=== PATIENT | female | born 1955 | race African-American/Black ===

== ENCOUNTER 2016-09-14 16:38 | Emergency (ER) | payer OTHER ==
[~2016-09-14] VITALS: Ht 162.6 cm; Wt 77.1 kg
[~2016-09-14 16:38] MED LIST: ALBUTEROL SULF8.5 GM INH; ASPIR 8181 MG ORAL; CIPROFLOXACIN500 M2 ORAL; DILANTIN100 MG ORAL; ENALAPRIL-HCTZ1 EAC1 ORAL; GUAIFENESIN DM118 M1 ORAL; IBUPROFEN600 MG ORAL; LEVAQUIN750 MG ORAL; LISINOPRIL2.5 MG ORAL; NITROFURANTOIN100 M2 ORAL; NORCO 5-325 TA1 EAC1 ORAL; PROAIR HFA8.5 GM INH; PROMETHAZINE-D118 ML ORAL; VALIUM5 MG PO; ZYRTEC10 MG ORAL
[2016-09-14] MEDS ORDERED: LISINOPRIL2.5 MG ORAL (17:29)
--- NOTE | 2016-09-14 17:42 | Emergency Room Report ---
History of Present Illness General Chief Complaint: Eye Problems Source: Patient Present Illness HPI 61-year-old female presents to emergency Department complaining of discharge out of the right eye with itching and sticky sensation x1 day. Patient states she woke up and her eye was stuck closed. Patient reports previous upper respiratory illness denies eye pain or possible foreign body sensation.. she also reports increase in erythema of the eye. Denies changes in vision. Denies photophobia, halos around lights, floaters or loss of vision. Denies CP , Palpitations, LOC, AMS, dizziness, Changes in Vision, Sensation, paresthesias , or a sudden severe headache. Allergies: Coded Allergies: CODEINE (Unverified Allergy, Intermediate, 12/16/14) NAUSEA Patient History Past Medical History: see triage record Past Surgical History: none Pertinent Family History: none Last Menstrual Period: na Now: No Reviewed Nursing Documentation: PMH: Agreed, PSxH: Agreed Nursing Documentation-PMH Past Medical History: No History, Except For Hx Cardiac Problems: No Hx Hypertension: Yes Hx Pacemaker: No Hx Asthma: No Hx COPD: No Hx Diabetes: No Hx Cancer: No Hx Gastrointestinal Problems: No Hx Dialysis: No Hx Cerebrovascular Accident: No Hx Seizures: Yes Review of Systems All Other Systems: negative except mentioned in HPI Physical Exam Vital Signs Date Time Temp Pulse Resp B/P Pulse Ox O2 Delivery O2 Flow Rate FiO2 09/14/16 17:24 97.9 78 18 111/79 99 Room Air Sp02 EP Interpretation: reviewed, normal General Appearance: no apparent distress, alert, GCS 15, non-toxic Head: normocephalic, atraumatic Eyes: right eye other - scant amount of yellow d/c noted in the right eye with mild erythema of the sclera, no evidence of infestation, mild crusting noted , left eye is WNL, bilateral eye PERRL, bilateral eye normal inspection ENT: hearing grossly normal, normal pharynx, no angioedema, normal voice Neck: full range of motion, supple/symm/no masses Respiratory: chest non-tender, lungs clear, normal breath sounds, speaking full sentences Cardiovascular #1: regular rate, rhythm, no edema Cardiovascular #2: 2+ carotid (R), 2+ carotid (L), 2+ radial (R), 2+ radial (L) , 2+ dorsalis pedis (R), 2+ dorsalis pedis (L) Gastrointestinal: normal bowel sounds, non tender, soft, no guarding, no rebound Rectal: deferred Genitourinary: normal inspection, no CVA tenderness Musculoskeletal: back normal, gait/station normal, normal range of motion, non- tender, no calf tenderness Neurologic: alert, oriented x3, responsive, motor strength/tone normal, sensory intact, speech normal Psychiatric: judgement/insight normal, memory normal, mood/affect normal, no suicidal/homicidal ideation Reflexes: 4+ bicep (R), 4+ bicep (L), 4+ tricep (R), 4+ tricep (L), 4+ knee (R) , 4+ knee (L) Skin: normal color, no rash, warm/dry, well hydrated Lymphatic: no adenopathy Medical Decision Making PA Attestation Dr. Winston is my supervising Physician whom patient management has been discussed with. Diagnostic Impression: Primary Impression: Bacterial conjunctivitis of right eye ER Course Pt. presents to the ED c/o : right eye redness, discharge, and increased lacrimation x 1 day. -with recent URI symptoms. , denies fb sensation. Ddx considered but are not limited to: corneal abrasion, acute glaucoma, globe rupture, FB, Corneal Ulcer, conjunctivitis. Iridis, orbital cellulitis,keratitis , sinusitis Vital signs: are WNL, pt. is afebrile H&PE are most consistent with: bacterial conjunctivitis. ORDERS: none at this time. ED INTERVENTIONS: none at this time. DISCHARGE: At this time pt. is stable for d/c to home. Will provide printed patient care instructions, and any necessary prescriptions. Care plan and follow up instructions have been discussed with the patient prior to discharge. Last Vital Signs Date Time Temp Pulse Resp B/P Pulse Ox O2 Delivery O2 Flow Rate FiO2 09/14/16 17:24 97.9 78 18 111/79 99 Room Air Disposition: HOME, SELF-CARE Condition: Stable Scripts Ofloxacin (OCUFLOX) 5 Ml Drops 3 DROP OP BID for 5 Days, #5 ML Prov: Belen Hays 09/14/16 Patient Instructions: Bacterial Conjunctivitis, [id number] Additional Instructions: Take medications as directed. Follow up with PCP in 3-5 days Return sooner to ED if new symptoms occur, or current symptoms become worse. Belen Hays Sep 14, 2016 17:42
[2016-09-14] MEDS ORDERED: OCUFLOX5 ML OP (17:50)
[2016-09-14 18:34] VITALS: BP 124/73
== END 2016-09-14 18:34 | disposition home or self-care (01) ==
LOC: EMR 18:05
DX: H10.89 Other conjunctivitis (principal); I10 Essential (primary) hypertension; Z88.6 Allergy status to analgesic agent
CPT/HCPCS: 99283

== ENCOUNTER 2017-01-06 23:27 | Emergency (ER) | payer OTHER ==
[~2017-01-06] VITALS: Ht 162.6 cm; Wt 77.1 kg
[~2017-01-06 23:27] MED LIST changes: +OCUFLOX5 ML OP
[2017-01-07] VITALS: BP 137/52
--- NOTE | 2017-01-07 00:03 | Emergency Room Report ---
History of Present Illness General Chief Complaint: Palpitations Source: Patient Present Illness HPI Patient presents with complaints of palpitation sensation for the past 3 days Patient reports that she has had a lot of significant stress including her own birthday libertarian and now her sons prom Denies any chest pain with this denies any headache or visual changes denies any back or flank pain patient had some discomfort going into the left shoulder with a palpitation sensation However is pain-free at this time Denies any weakness Allergies: Coded Allergies: CODEINE (Unverified Allergy, Intermediate, 12/16/14) NAUSEA Patient History Past Medical History: see triage record Pertinent Family History: none Last Menstrual Period: NONE Now: No Reviewed Nursing Documentation: PMH: Agreed, PSxH: Agreed Nursing Documentation-PMH Past Medical History: No Stated History Hx Cardiac Problems: No Hx Hypertension: Yes Hx Pacemaker: No Hx Asthma: No Hx COPD: No Hx Diabetes: No Hx Cancer: No Hx Gastrointestinal Problems: No Hx Dialysis: No Hx Cerebrovascular Accident: No Hx Seizures: Yes Review of Systems All Other Systems: negative except mentioned in HPI Physical Exam Vital Signs Date Time Temp Pulse Resp B/P Pulse Ox O2 Delivery O2 Flow Rate FiO2 01/06/17 23:30 97.9 74 20 158/62 98 Room Air Sp02 EP Interpretation: reviewed, normal General Appearance: well appearing, no apparent distress Head: normocephalic, atraumatic Eyes: bilateral eye EOMI, bilateral eye PERRL ENT: hearing grossly normal, normal pharynx, TMs + canals normal, uvula midline Neck: full range of motion, supple, no meningismus, no bony tend Respiratory: lungs clear, normal breath sounds, no rhonchi, no respiratory distress, no retraction, no accessory muscle use Cardiovascular #1: normal peripheral pulses, regular rate, rhythm, no edema, no gallop, no JVD, no murmur Gastrointestinal: normal bowel sounds, non tender, soft, no mass, no organomegaly, non-distended, no guarding, no hernia, no pulsatile mass, no rebound Genitourinary: no CVA tenderness Musculoskeletal: normal inspection Neurologic: oriented x3, responsive, financial counselor III-XII nml as tested, motor strength/ tone normal, sensory intact Psychiatric: mood/affect normal Skin: normal color, no rash, warm/dry, palpation normal Lymphatic: normal inspection, no adenopathy Medical Decision Making Diagnostic Impression: Primary Impression: Palpitations ER Course Patient is a fairly complex patient with multiple differential to consideration including but not limited to cardiac cardiopulmonary and vascular emergencies Patient's baseline blood work are normal EKG looked appropriate Patient feels symptomatically improved Potassium was minimal low and this was replaced orally here And patient discharged for close outpatient followup Labs Test 01/06/17 23:57 White Blood Count 6.6 K/UL (4.8-10.8) Red Blood Count 3.85 M/UL (4.20-5.40) Hemoglobin 10.9 G/DL (12.0-16.0) Hematocrit 33.7 % (37.0-47.0) Mean Corpuscular Volume 88 FL (80-99) Mean Corpuscular Hemoglobin 28.3 PG (27.0-31.0) Mean Corpuscular Hemoglobin Concent 32.3 G/DL (32.0-36.0) Red Cell Distribution Width 15.0 % (11.6-14.8) Platelet Count 290 K/UL (150-450) Mean Platelet Volume 7.3 FL (6.5-10.1) Neutrophils (%) (Auto) 54.5 % (45.0-75.0) Lymphocytes (%) (Auto) 36.4 % (20.0-45.0) Monocytes (%) (Auto) 8.7 % (1.0-10.0) Eosinophils (%) (Auto) 0.1 % (0.0-3.0) Basophils (%) (Auto) 0.4 % (0.0-2.0) Sodium Level 141 mEQ/L (135-145) Potassium Level 3.1 mEQ/L (3.4-4.9) Chloride Level 98 mEQ/L (98-107) Carbon Dioxide Level 30 mEQ/L (20-30) Anion Gap 13 (5-15) Blood Urea Nitrogen 16 mg/dL (7-23) Creatinine 0.9 mg/dL (0.5-0.9) Estimat Glomerular Filtration Rate > 60 mL/min (>60) Glucose Level 88 mg/dL (74-106) Calcium Level 9.5 mg/dL (8.6-10.2) Total Bilirubin < 0.2 mg/dL (0.0-1.2) Aspartate Amino Transf (AST/SGOT) 20 U/L (5-40) Alanine Aminotransferase (ALT/SGPT) 17 U/L (3-33) Alkaline Phosphatase 130 U/L (35-104) Total Creatine Kinase 101 U/L (26-140) Creatine Kinase MB < 1.5 ng/mL (< 3.8) Creatine Kinase MB Relative Index 1.4 Troponin I < 0.30 ng/mL (<=0.30) Total Protein 8.3 g/dL (6.6-8.7) Albumin 4.4 g/dL (3.5-5.2) Globulin 3.9 g/dL Albumin/Globulin Ratio 1.1 (1.0-2.7) EKG Diagnostic Results Rate: normal Rhythm: NSR ST Segments: no acute changes Rhythm Strip Diag. Results EP Interpretation: yes Rate: 67 Rhythm: NSR, no PVC's, no ectopy Chest X-Ray Diagnostic Results EP Interpretation: Yes Findings: no consolidation, no effusion, no pneumothorax Number of Views: 1 Last Vital Signs Date Time Temp Pulse Resp B/P Pulse Ox O2 Delivery O2 Flow Rate FiO2 01/07/17 00:00 97.9 73 17 137/52 98 Room Air Status: improved Disposition: HOME, SELF-CARE Condition: Improved Additional Instructions: Patient is provided with the discharge instructions notified to follow up with primary doctor in the next 2-3 days otherwise return to the er with any worsening symptoms. Please note that this report is being documented using [employer] technology. This can lead to erroneous entry secondary to incorrect interpretation by the dictating instrument. TREASURE MOBLEY D.O. January 07, 2017 00:03
[2017-01-07 00:08] LABS: BASOPHILS % (AUTO) 0.4 % (0.0-2.0); EOSINOPHILS % (AUTO) 0.1 % (0.0-3.0); LYMPHOCYTES % (AUTO) 36.4 % (20.0-45.0); MEAN CORPUSCULAR HEMOGLOBIN 28.3 PG (27.0-31.0); MEAN CORPUSCULAR HGB CONC 32.3 G/DL (32.0-36.0); MEAN CORPUSCULAR VOLUME 88 FL (80-99); MEAN PLATELET VOLUME 7.3 FL (6.5-10.1); MONOCYTES % (AUTO) 8.7 % (1.0-10.0); NEUTROPHILS % (AUTO) 54.5 % (45.0-75.0); PLATELET COUNT 290 K/UL (150-450); RED BLOOD COUNT 3.85 M/UL (4.20-5.40); WHITE BLOOD COUNT 6.6 K/UL (4.8-10.8)
[2017-01-07 00:27] LABS: TROPONIN I < 0.30 ng/mL (<=0.30)
[2017-01-07 00:30] LABS: ALANINE AMINOTRANSFERASE 17 U/L (3-33); ALBUMIN/GLOBULIN RATIO 1.1 (1.0-2.7); ANION GAP 13 (5-15); ASPARTATE AMINO TRANSFERASE 20 U/L (5-40); CALCIUM 9.5 mg/dL (8.6-10.2); CARBON DIOXIDE 30 mEQ/L (20-30); CHLORIDE 98 mEQ/L (98-107); CREATININE 0.9 mg/dL (0.5-0.9); GLOMERULAR FILTRATION RATE > 60 mL/min (>60); HEMOLYSIS 2; POTASSIUM 3.1 mEQ/L (3.4-4.9); SODIUM 141 mEQ/L (135-145); TOTAL PROTEIN 8.3 g/dL (6.6-8.7)
[2017-01-07 00:40] LABS: CKMB < 1.5 ng/mL (< 3.8)
[2017-01-07 00:55] VITALS: BP 122/57
[2017-01-07 01:15] VITALS: BP 122/57
--- NOTE | 2017-01-07 09:07 | Diagnostic Imaging Report ---
Indications: Chest pain Technique: Portable upright AP chest Findings: Comparison: 11/02/15 Cardiac silhouette remains normal in size. Mild pulmonary vascular redistribution suggested.. Lungs and pleura remain clear. Mild calcification and elongation of the aortic arch again noted. IMPRESSION: Suggestion of pulmonary venous hypertension. Early heart failure must be considered. Stable chronic changes as described
== END 2017-01-07 01:16 | disposition home or self-care (01) ==
LOC: EMR 23:55
DX: R00.2 Palpitations (principal); Z88.5 Allergy status to narcotic agent; I10 Essential (primary) hypertension; Z86.69 Personal history of other diseases of the nervous system and sense organs
CPT/HCPCS: 36415; 71010; 80053; 82550; 82553; 84484; 85025; 93005; 99283; J8499

== ENCOUNTER 2017-05-28 02:07 | Emergency (ER) | payer OTHER ==
[~2017-05-28] VITALS: Ht 162.6 cm; Wt 78.0 kg
[2017-05-28 02:20] VITALS: BP 150/74
[2017-05-28] MEDS ORDERED: ENALAPRIL-HCTZ1 EACH ORAL (02:20)
[2017-05-28] MEDS ORDERED: Ketorolac 60mg Inj IM ONE (03:00)
[2017-05-28 03:15] VITALS: BP 130/78
[2017-05-28] MEDS ORDERED: IBUPROFEN600 MG ORAL (03:28)
[2017-05-28 04:00] VITALS: BP 122/75
[2017-05-28 04:05] VITALS: BP 122/75
--- NOTE | 2017-05-30 07:19 | Emergency Room Report ---
History of Present Illness General Chief Complaint: Hypertension Source: Patient Present Illness HPI Patient present with complaints of high blood pressure Patient reports that usually when her blood pressure is high she feels a pounding type headache Denies any focal weakness denies any neck pain or photophobia Denies any chest pain shortness of breath patient reports taking her blood pressure medicine earlier which has improved her blood pressure Denies any pleurisy Patient has had headaches in the past,and similar headache to this as well Allergies: Coded Allergies: CODEINE (Unverified Allergy, Intermediate, 12/16/14) NAUSEA Patient History Past Medical History: see triage record Pertinent Family History: none Last Menstrual Period: NA Now: No Reviewed Nursing Documentation: PMH: Agreed, PSxH: Agreed Nursing Documentation-PMH Hx Cardiac Problems: No Hx Hypertension: Yes Hx Pacemaker: No Hx Asthma: No Hx COPD: No Hx Diabetes: No Hx Cancer: No Hx Gastrointestinal Problems: No Hx Dialysis: No Hx Cerebrovascular Accident: No Hx Seizures: Yes Review of Systems All Other Systems: negative except mentioned in HPI Physical Exam Vital Signs Date Time Temp Pulse Resp B/P (MAP) Pulse Ox O2 Delivery O2 Flow Rate FiO2 05/28/17 02:13 97.7 80 18 177/71 98 Room Air Sp02 EP Interpretation: reviewed, normal General Appearance: well appearing, no apparent distress Head: normocephalic, atraumatic Eyes: bilateral eye PERRL, bilateral eye EOMI ENT: hearing grossly normal, normal pharynx, TMs + canals normal, uvula midline Neck: full range of motion, supple, no meningismus, no bony tend Respiratory: lungs clear, normal breath sounds, no rhonchi, no respiratory distress, no retraction, no accessory muscle use Cardiovascular #1: normal peripheral pulses, regular rate, rhythm, no edema, no gallop, no JVD, no murmur Gastrointestinal: normal bowel sounds, non tender, soft, no mass, no organomegaly, non-distended, no guarding, no hernia, no pulsatile mass, no rebound Genitourinary: no CVA tenderness Musculoskeletal: normal inspection Neurologic: oriented x3, responsive, furnace fitter III-XII nml as tested, motor strength/ tone normal, sensory intact Psychiatric: mood/affect normal Skin: normal color, no rash, warm/dry, palpation normal Lymphatic: normal inspection, no adenopathy Medical Decision Making Diagnostic Impression: Primary Impression: Headache Additional Impression: Hypertension ER Course Multiple differentials considered, including but not limited to cardiac, cardiopulmonary, neurological pathology Patient otherwise has a benign neurological exam Pain was treated in the emergency room I discussed patient taking her blood pressure 3 times a day for the next 2 days to present to her physician Rhythm Strip Diag. Results EP Interpretation: yes Rate: 77 Rhythm: NSR, no PVC's, no ectopy Last Vital Signs Date Time Temp Pulse Resp B/P (MAP) Pulse Ox O2 Delivery O2 Flow Rate FiO2 05/28/17 04:05 97.7 74 17 122/75 100 Room Air Status: improved Disposition: HOME, SELF-CARE Condition: Improved Scripts Ibuprofen* (MOTRIN*) 600 Mg Tablet 600 MG ORAL Q8H Y for For Pain, #20 TAB 0 Refills Prov: TREASURE MOBLEY D.O. 05/28/17 Referrals: [facility] (PCP) Patient Instructions: General Headache Without Cause, Managing Your High Blood Pressure, Hypertension Additional Instructions: Patient is provided with the discharge instructions notified to follow up with primary doctor in the next 2-3 days otherwise return to the er with any worsening symptoms. Please note that this report is being documented using [employer] technology. This can lead to erroneous entry secondary to incorrect interpretation by the dictating instrument. TREASURE MOBLEY D.O. May 30, 2017 07:19
--- NOTE | 2017-06-08 08:39 | Cardiology Report ---
APPROVED REPORT EKG Measurement Heart [id number] Sinus bradycardia Otherwise normal ECG
== END 2017-05-28 04:05 | disposition home or self-care (01) ==
LOC: EMR 02:30
DX: R51 Headache (principal); I10 Essential (primary) hypertension; Z88.6 Allergy status to analgesic agent
CPT/HCPCS: 93005; 96372; 99283

== ENCOUNTER 2017-05-30 21:45 | Emergency (ER) | payer OTHER ==
[~2017-05-30] VITALS: Ht 162.6 cm; Wt 78.0 kg
[~2017-05-30 21:45] MED LIST changes: +ENALAPRIL-HCTZ1 EACH ORAL
[2017-05-30 22:15] VITALS: BP 128/68
[2017-05-30 23:05] LABS: BASOPHILS % (AUTO) 0.7 % (0.0-2.0); EOSINOPHILS % (AUTO) 0.1 % (0.0-3.0); MEAN CORPUSCULAR HEMOGLOBIN 28.4 PG (27.0-31.0); MEAN CORPUSCULAR HGB CONC 30.7 G/DL (32.0-36.0); MEAN CORPUSCULAR VOLUME 93 FL (80-99); MEAN PLATELET VOLUME 6.6 FL (6.5-10.1); NEUTROPHILS % (AUTO) 65.2 % (45.0-75.0); PLATELET COUNT 247 K/UL (150-450); RED BLOOD COUNT 3.96 M/UL (4.20-5.40); RED CELL DISTRIBUTION WIDTH 15.1 % (11.6-14.8); WHITE BLOOD COUNT 5.9 K/UL (4.8-10.8)
[2017-05-30 23:08] LABS: APPEARANCE,URINE SLIGHTLY CLOUDY; KETONES,URINE NEGATIVE (NEGATIVE); LEUKOCYTE ESTERASE ,URINE 3+ (NEGATIVE); NITRITE,URINE NEGATIVE (NEGATIVE); PH,URINE 5 (4.5-8.0); PROTEIN,URINE NEGATIVE (NEGATIVE); UROBILINOGEN,URINE NORMAL MG/DL (0.0-1.0)
[2017-05-30 23:12] LABS: ANION GAP 8 (5-15); CALCIUM 9.6 MG/DL (8.5-10.1); CARBON DIOXIDE 29 MMOL/L (21-32); CHLORIDE 98 MMOL/L (98-107); CREATININE 0.9 MG/DL (0.55-1.30); GLOMERULAR FILTRATION RATE > 60 mL/min (>60); POTASSIUM 4.2 MMOL/L (3.5-5.1); SODIUM 135 MMOL/L (136-145)
[2017-05-30 23:19] LABS: BACTERIA,URINE FEW /HPF; SQUAMOUS EPITHELIAL CELL,UR FEW /LPF (NONE/OCC); WBC,URINE 20-30 /HPF (0 - 2)
[2017-05-30] MEDS ORDERED: MACROBID100 MG ORAL (23:29)
[2017-05-30] MEDS ORDERED: NEURONTIN100 MG ORAL (23:29)
--- NOTE | 2017-05-30 23:30 | Emergency Room Report ---
History of Present Illness General Chief Complaint: Headache Source: Patient Present Illness HPI Is a 62-year-old female with a history her blood pressure. She presents with chief complaint of high blood pressure and tingling in her feet and hands. His been ongoing for months. No trauma. No fever chills but no nausea no vomiting. Denies any other complaint. Allergies: Coded Allergies: CODEINE (Unverified Allergy, Intermediate, 12/16/14) NAUSEA Patient History Past Medical History: see triage record, old chart reviewed, HTN, seizures Past Surgical History: none Pertinent Family History: none Social History: Denies: smoking Now: No Immunizations: other Reviewed Nursing Documentation: PMH: Agreed, PSxH: Agreed Nursing Documentation-PMH Past Medical History: No History, Except For Hx Cardiac Problems: No Hx Hypertension: Yes Hx Pacemaker: No Hx Asthma: No Hx COPD: No Hx Diabetes: No Hx Cancer: No Hx Gastrointestinal Problems: No Hx Dialysis: No Hx Cerebrovascular Accident: No Hx Seizures: Yes Review of Systems Eye: Denies: eye pain, blurred vision ENT: Denies: ear pain, nose congestion, throat swelling Respiratory: Denies: cough, shortness of breath Cardiovascular: Denies: chest pain, palpitations Gastrointestinal: Denies: abdominal pain, diarrhea, nausea, vomiting Musculoskeletal: Denies: back pain, joint pain Skin: Denies: rash Neurological: Denies: headache, numbness Endocrine: Denies: increased thirst, increased urine Hematologic/Lymphatic: Denies: easy bruising All Other Systems: negative except mentioned in HPI Physical Exam Vital Signs Date Time Temp Pulse Resp B/P (MAP) Pulse Ox O2 Delivery O2 Flow Rate FiO2 05/30/17 22:09 97.5 71 16 128/68 99 Room Air vitals normal Sp02 EP Interpretation: reviewed, normal General Appearance: well appearing, no apparent distress, alert Head: normocephalic, atraumatic Eyes: bilateral eye PERRL, bilateral eye EOMI ENT: hearing grossly normal, normal pharynx Neck: full range of motion, supple, no meningismus Respiratory: chest non-tender, lungs clear, normal breath sounds Cardiovascular #1: regular rate, rhythm, no murmur Gastrointestinal: normal bowel sounds, non tender, no mass, no organomegaly, no bruit, non-distended Musculoskeletal: back normal, gait/station normal, normal range of motion Psychiatric: mood/affect normal Skin: warm/dry Medical Decision Making Diagnostic Impression: Primary Impression: Neuropathy Additional Impression: UTI (urinary tract infection) Qualified Codes: N30.00 - Acute cystitis without hematuria ER Course Patient presents with vague numbness and tingling is in her feet and hand. She' s been alcoholic or drug user. No evidence of infection. No evidence of endorgan damage. She does have urinary tract infection. We'll treat that. Last Vital Signs Date Time Temp Pulse Resp B/P (MAP) Pulse Ox O2 Delivery O2 Flow Rate FiO2 05/30/17 22:09 97.5 71 16 128/68 99 Room Air Status: improved Disposition: HOME, SELF-CARE Condition: Stable Scripts Nitrofurantoin Monohyd/M-Cryst (Nitrofurantoin [place]-Mcr 100 mg) 100 Mg Capsule 100 MG ORAL Q12H, #14 CAP Prov: SONIA IBRARA M.D. 05/30/17 Gabapentin* (NEURONTIN*) 100 Mg Capsule 100 MG ORAL THREE TIMES A DAY, #30 CAP 0 Refills Prov: SONIA IBARRA M.D. 05/30/17 Additional Instructions: Followup with your Dr. in 7 days. Return if symptom worsen. SONIA IBARRA M.D. May 30, 2017 23:30
[2017-05-30 23:45] VITALS: BP 128/68
== END 2017-05-30 23:45 | disposition home or self-care (01) ==
LOC: EMR 22:20
DX: G62.9 Polyneuropathy, unspecified (principal); N39.0 Urinary tract infection, site not specified; I10 Essential (primary) hypertension
CPT/HCPCS: 36415; 80048; 81001; 85025; 87086; 99284

== ENCOUNTER 2017-09-03 15:46 | Emergency (ER) | payer OTHER ==
[~2017-09-03] VITALS: Ht 162.6 cm; Wt 78.0 kg
[~2017-09-03 15:46] MED LIST changes: +MACROBID100 MG ORAL; +NEURONTIN100 MG ORAL
[2017-09-03 15:53] VITALS: BP 144/66
[2017-09-03] MEDS ORDERED: TYLENOL EXTRA500 MG ORAL (16:44)
[2017-09-03] MEDS ORDERED: CYCLOBENZAPRINE10 MG ORAL (16:44)
[2017-09-03 16:56] VITALS: BP 144/66
--- NOTE | 2017-09-03 18:13 | Emergency Room Report ---
History of Present Illness General Chief Complaint: Back Pain-No Injury Source: Patient Present Illness HPI 62-year-old female presents ED complaining of back pain x3 days. Pain is right- sided, burning, nonradiating. Worse with twisting and bending. 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 Denies dysuria or hematuria. Denies chest pain shortness of breath. Denies abdominal pain. No other aggravating relieving factors. Denies any other associated symptoms Allergies: Coded Allergies: CODEINE (Unverified Allergy, Intermediate, 12/16/14) NAUSEA Patient History Past Medical History: HTN Past Surgical History: none Pertinent Family History: none Social History: Denies: smoking, alcohol use, drug use Last Menstrual Period: hystrectomy Now: No Immunizations: UTD Reviewed Nursing Documentation: PMH: Agreed, PSxH: Agreed Nursing Documentation-PMH Past Medical History: No History, Except For Hx Cardiac Problems: No Hx Hypertension: Yes Hx Pacemaker: No Hx Asthma: No Hx COPD: No Hx Diabetes: No Hx Cancer: No Hx Gastrointestinal Problems: No Hx Dialysis: No Hx Cerebrovascular Accident: No Hx Seizures: Yes Review of Systems All Other Systems: negative except mentioned in HPI Physical Exam Vital Signs Date Time Temp Pulse Resp B/P (MAP) Pulse Ox O2 Delivery O2 Flow Rate FiO2 09/03/17 15:53 98.4 16 144/66 98 Room Air 09/03/17 15:53 71 Sp02 EP Interpretation: reviewed, normal General Appearance: no apparent distress, alert, GCS 15, non-toxic Head: normocephalic Eyes: bilateral eye normal inspection, bilateral eye PERRL ENT: normal ENT inspection Neck: normal inspection Respiratory: chest non-tender, lungs clear, normal breath sounds, speaking full sentences Cardiovascular #1: regular rate, rhythm, no edema Gastrointestinal: normal bowel sounds, non tender, soft, non-distended, no guarding, no rebound Rectal: deferred Genitourinary: no CVA tenderness Musculoskeletal: tender - paraspinal lumbar pain Neurologic: alert, oriented x3, responsive, motor strength/tone normal, sensory intact, speech normal Psychiatric: normal inspection Skin: normal inspection Lymphatic: normal inspection Medical Decision Making Diagnostic Impression: Primary Impression: Back pain Qualified Codes: M54.5 - Low back pain ER Course Hospital Course 62-year-old female presents ED complaining of lower back pain. No evidence of trauma Differential diagnoses include: pyelonephritis, kidney stone, muscle strain, Lspine fracture Clinical course Patient placed on stretcher. After initial history and physical exam reveals a female in no acute distress. There is no vertebral body tenderness. No flank pain. No bruit tenderness. No abdominal pain. There is some paraspinal lumbar tenderness on the right side. Consistent with muscle strain given history of worsening with bending twisting and new job with heavy lifting. recommend modified duty, heating pad, anti-inflammatories and muscle asked to Diagnosis - back pain Stable and discharged to home with prescription for Tylenol, Flexeril. Followup with PMD. Return to ED if symptoms recur or worsen Last Vital Signs Date Time Temp Pulse Resp B/P (MAP) Pulse Ox O2 Delivery O2 Flow Rate FiO2 09/03/17 16:56 98.4 16 144/66 98 Room Air 09/03/17 15:53 71 Status: improved Disposition: HOME, SELF-CARE Condition: Stable Scripts Cyclobenzaprine Hcl* (FLEXERIL*) 10 Mg Tablet 10 MG ORAL TID Y for Muscle Spasm, #20 TAB Prov: OG GONZALEZ M.D. 09/03/17 Acetaminophen* (TYLENOL EXTRA STRENGTH*) 500 Mg Tablet 500 MG ORAL Q6H Y for Mild Pain/Temp > 100.5, #30 TAB 0 Refills Prov: OG GONZALEZ M.D. 09/03/17 Referrals: [facility] (PCP) Departure Forms: Return to Work Return to Work Date: Sep 06, 2017 Work Restrictions: No Heavy Lifting Patient Instructions: Back Pain, Adult OG GONZALEZ M.D. Sep 03, 2017 18:13
== END 2017-09-03 16:56 | disposition home or self-care (01) ==
LOC: EMR 16:40
DX: M54.5 Low back pain (principal); I10 Essential (primary) hypertension
CPT/HCPCS: 99284

== ENCOUNTER 2018-01-06 20:46 | Emergency (ER) | payer OTHER ==
[~2018-01-06] VITALS: Ht 162.6 cm; Wt 76.2 kg
[~2018-01-06 20:46] MED LIST changes: +CYCLOBENZAPRINE10 MG ORAL; +TYLENOL EXTRA500 MG ORAL
[2018-01-06] MEDS ORDERED: PHENYTOIN SODI100 MG ORAL (20:59)
[2018-01-06] MEDS ORDERED: BLACK CUMIN SEED OIL (20:59)
[2018-01-06] MEDS ORDERED: LISINOPRIL5 MG ORAL (20:59)
--- NOTE | 2018-01-06 21:10 | Emergency Room Report ---
History of Present Illness General Chief Complaint: General Complaint Source: Patient Present Illness HPI This is a 63-year-old female with a history of high blood pressure but not taking her medication because she's tried some homeopathic [id number] vacation. She doesn't check her blood pressure either. She also has history of seizure but hasn't had one over 15 years. Her neurologist is weaning her off of her Dilantin. She's been complaining of feeling she and tingling. Also with a throbbing headache. No nausea no vomiting. No fever chills. She had one leftover lisinopril that she took at 8:20 PM. Patient denies fever or chills. Denies any seizure. Denies any chest pain. She had recent blood work done and was reported normal except for anemia. Allergies: Coded Allergies: CODEINE (Unverified Allergy, Intermediate, 01/06/18) NAUSEA Patient History Past Medical History: see triage record, old chart reviewed, HTN, seizures Past Surgical History: other Pertinent Family History: none Social History: Denies: smoking Last Menstrual Period: n/a Now: No Immunizations: other Reviewed Nursing Documentation: PMH: Agreed; PSxH: Agreed Nursing Documentation-PMH Hx Cardiac Problems: No Hx Hypertension: Yes Hx Pacemaker: No Hx Asthma: No Hx COPD: No Hx Diabetes: No Hx Cancer: No Hx Gastrointestinal Problems: No Hx Dialysis: No Hx Cerebrovascular Accident: No Hx Seizures: Yes - last sz in 2002 Review of Systems Eye: Denies: eye pain, blurred vision ENT: Denies: ear pain, nose congestion, throat swelling Respiratory: Denies: cough, shortness of breath Cardiovascular: Denies: chest pain, palpitations Gastrointestinal: Denies: abdominal pain, diarrhea, nausea, vomiting Musculoskeletal: Denies: back pain, joint pain Skin: Denies: rash Neurological: Reports: headache, paresthesia; Denies: numbness Endocrine: Denies: increased thirst, increased urine Hematologic/Lymphatic: Denies: easy bruising All Other Systems: negative except mentioned in HPI Physical Exam Vital Signs Date Time Temp Pulse Resp B/P (MAP) Pulse Ox O2 Delivery O2 Flow Rate FiO2 01/06/18 20:47 98.1 79 16 173/77 98 Room Air 98.1 vitals with high blood pressure Sp02 EP Interpretation: reviewed, normal General Appearance: well appearing, no apparent distress, alert Head: normocephalic, atraumatic Eyes: bilateral eye PERRL, bilateral eye EOMI ENT: hearing grossly normal, normal pharynx Neck: full range of motion, supple, no meningismus Respiratory: chest non-tender, lungs clear, normal breath sounds Cardiovascular #1: regular rate, rhythm, no murmur Gastrointestinal: normal bowel sounds, non tender, no mass, no organomegaly, no bruit, non-distended Musculoskeletal: back normal, gait/station normal, normal range of motion Psychiatric: mood/affect normal Skin: warm/dry Medical Decision Making Diagnostic Impression: Primary Impression: Hypertension Qualified Codes: I10 - Essential (primary) hypertension ER Course Patient with symptoms of possible stress-related/anxiety. Could also be withdrawal from Dilantin. Headache could also be from her high blood pressure. She has no evidence of endorgan damage. No neurological deficit. Better after Ativan. We'll put her back on lisinopril. Last Vital Signs Date Time Temp Pulse Resp B/P (MAP) Pulse Ox O2 Delivery O2 Flow Rate FiO2 01/06/18 20:47 98.1 79 16 173/77 98 Room Air 98.1 Status: improved Disposition: HOME, SELF-CARE Condition: Stable Scripts Enalapril Maleate* (ENALAPRIL MALEATE*) 5 Mg Tablet 5 MG ORAL EVERY 12 HOURS, #30 TAB Prov: SONIA IBARRA M.D. 01/06/18 Referrals: [facility] (PCP) Additional Instructions: Follow-up with your doctor in 7 days for recheck. Take your blood pressure medication. Return if symptom worsen. SONIA IBARRA M.D. January 06, 2018 21:10
[2018-01-06] MEDS ORDERED: LORazepam 1mg tab ORAL ONE (21:15)
[2018-01-06 21:39] VITALS: BP 161/62
[2018-01-06] MEDS ORDERED: ENALAPRIL MALEAT5 MG ORAL (21:44)
[2018-01-06 21:52] VITALS: BP 161/62
== END 2018-01-06 21:52 | disposition home or self-care (01) ==
LOC: EMR 20:58
DX: I10 Essential (primary) hypertension (principal); Z88.5 Allergy status to narcotic agent; Z86.69 Personal history of other diseases of the nervous system and sense organs
CPT/HCPCS: 99283

== ENCOUNTER 2018-01-16 17:58 | Emergency (ER) | payer OTHER ==
[~2018-01-16] VITALS: Ht 162.6 cm; Wt 77.1 kg
[~2018-01-16 17:58] MED LIST changes: +BLACK CUMIN SEED OIL; +ENALAPRIL MALEAT5 MG ORAL; +LISINOPRIL5 MG ORAL; +PHENYTOIN SODI100 MG ORAL
[2018-01-16] MEDS ORDERED: EXCEDRIN EXTRA1 EAC1 PO (18:40)
--- NOTE | 2018-01-16 18:42 | Emergency Room Report ---
History of Present Illness General Chief Complaint: Pain Present Illness HPI 63-year-old female patient presents to the ER complaining of "burning" pain in the back of her head. Reports symptoms have been present for the past week and a half. Reports that she was recently weaned off of her Dilantin for her seizure disorder, reports has had not had a seizure for 20 years, and prescribed gabapentin for the burning pain by her neurologist last . Reports initially help treat the burning pain but since that time has not been helping. Denies other acute symptoms. Denies vision changes, vomiting. Denies chest pain, shortness of breath, abdominal pain. requesting medication that was prescribed her previously at last ER visit for symptoms. reports recently had MRI and labs done, results came back negative. Patient denies neck pain. Allergies: Coded Allergies: CODEINE (Unverified Allergy, Intermediate, 01/06/18) NAUSEA Patient History Past Medical History: see triage record Now: No Reviewed Nursing Documentation: PMH: Agreed; PSxH: Agreed Nursing Documentation-PMH Hx Cardiac Problems: No Hx Hypertension: Yes Hx Pacemaker: No Hx Asthma: No Hx COPD: No Hx Diabetes: No Hx Cancer: No Hx Gastrointestinal Problems: No Hx Dialysis: No Hx Cerebrovascular Accident: No Hx Seizures: Yes - last sz in 2002 Review of Systems All Other Systems: negative except mentioned in HPI Physical Exam Vital Signs Date Time Temp Pulse Resp B/P (MAP) Pulse Ox O2 Delivery O2 Flow Rate FiO2 01/16/18 18:02 98.1 69 20 152/64 98 Room Air 98.1 Sp02 EP Interpretation: reviewed, normal General Appearance: well appearing, no apparent distress, alert, GCS 15, non- toxic Head: normocephalic, atraumatic Eyes: bilateral eye normal inspection, bilateral eye PERRL ENT: hearing grossly normal, normal pharynx, no angioedema, normal voice, TMs + canals normal, uvula midline, moist mucus membranes Neck: full range of motion Respiratory: lungs clear, normal breath sounds, no rhonchi, no respiratory distress, no accessory muscle use, no wheezing, speaking full sentences Cardiovascular #1: regular rate, rhythm, no edema Gastrointestinal: non tender, soft, no mass, non-distended, no guarding, no rebound Genitourinary: no CVA tenderness Musculoskeletal: back normal, digits/nails normal, gait/station normal, normal range of motion, non-tender Neurologic: alert, oriented x3, responsive, death clearance coordinator III-XII nml as tested, motor strength/tone normal, sensory intact Psychiatric: mood/affect normal Skin: no rash Lymphatic: no adenopathy Medical Decision Making PA Attestation Dr. Sol is my supervising Physician whom patient management has been discussed with. Diagnostic Impression: Primary Impression: Headache ER Course Pt presents to ED c/o headache. DDX considered but are not limited to migraine, cluster MIMS, tension MIMS, meningitis, ICH, medication. Patient reports recently had MRI performed, results were negative, no focal or neuro deficits, do not believe patient needs repeat imaging at this time. patient has no fever, denies neck pain, low suspicion for meningitis. VITAL SIGNS are WNL, patient is afebrile. mild elevation of blood pressure, patient denies chest pain, shortness of breath, does not require acute intervention ER at this time. Follow-up with primary care provider to discuss further management and treatment of blood pressure. Ordered Excedrin migraine medication in ER for headache. ER COURSE Reviewed previous ER visit, was given Ativan, was told MIMS could be stress related. Instructed patient follow-up neurologist for further diagnosis and treatment. Reports has followup appointment this week with neurologist. Take gabapentin if helps relieve symptoms as instructed by neurologist. Patient reports burning pain is headache, informed patient if headache pain, take Excedrin Migraine, will provide prescription to patient. Informed patient's symptoms could be related to withdrawal from Dilantin versus stress versus headache. Informed patient to continue taking her blood pressure medication. Patient reports pain improved. Patient is AOx3, neurologically intact, nontoxic appearing, and ambulatory. Patient okay for discharge home. Patient reports feeling better. DISCHARGE: -Rx provided Excedrin migraine At this time pt is stable for d/c to home. Patient is resting comfortably, in no acute distress, nontoxic appearing, talking and smiling. Will provide with patient care instructions and any necessary prescriptions. Patient to take medication as instructed. Care plan and follow-up instructions provided. Patient questions asked and answered. Patient instructed to follow-up with primary care provider in the next 3 days and discuss further referral with PCP to neurologist. ER precautions given. Patient instructed to return to ER immediately for any new or worsening of symptoms including but not limited to fever, neck stiffness , vision changes, and neurological symptoms. - Please note that this Emergency Department Report was dictated using [employer] designer technology software, occasionally this can lead to erroneous entry secondary to interpretation by the dictation equipment. Last Vital Signs Date Time Temp Pulse Resp B/P (MAP) Pulse Ox O2 Delivery O2 Flow Rate FiO2 01/16/18 18:02 98.1 69 20 152/64 98 Room Air 98.1 Disposition: HOME, SELF-CARE Condition: Stable Scripts Aspirin/Acetaminophen/Caffeine (EXCEDRIN EXTRA STRENGTH CAPLET) 1 Each Tablet 1 EACH PO BID, #30 TAB Prov: Ady Pastor 01/16/18 Patient Instructions: General Headache Without Cause, [id number] Additional Instructions: Followup with primary care provider in 3 -5 days. Follow up with neurologist. Take medications as directed. Patient questions asked and answered. ER precautions given, patient instructed to return to ER immediately for any new or worsening of symptoms. Ady Pastor Jan 16, 2018 18:42
[2018-01-16] MEDS ORDERED: Excedrin Migraine tab ORAL ONE (18:45)
[2018-01-16 18:58] VITALS: BP 152/64
[2018-01-16 19:00] VITALS: BP 152/64
== END 2018-01-16 19:00 | disposition home or self-care (01) ==
LOC: EMR 18:54
DX: R51 Headache (principal); I10 Essential (primary) hypertension; Z88.6 Allergy status to analgesic agent
CPT/HCPCS: 99283

== ENCOUNTER 2018-12-08 20:18 | Emergency (ER) | payer OTHER ==
[~2018-12-08] VITALS: Ht 162.6 cm; Wt 79.4 kg
[~2018-12-08 20:18] MED LIST changes: +EXCEDRIN EXTRA1 EAC1 PO
[2018-12-08 20:38] VITALS: BP 160/74
[2018-12-08] MEDS ORDERED: LISINOPRIL20 MG ORAL (20:40)
[2018-12-08 21:09] VITALS: BP 145/60
[2018-12-08] MEDS ORDERED: Tetanus/Diptheria/Pertussis IM ONE (21:15)
[2018-12-08] MEDS ORDERED: Ketorolac 30mg Inj IV ONE (21:15)
[2018-12-08] MEDS ORDERED: Acetaminophen 500mg (ES) tab PO ONE (21:15)
[2018-12-08] MEDS ORDERED: Neosporin Oint Ud Pkt TOP ONE (21:15)
[2018-12-08 22:22] LABS: BASOPHILS % (AUTO) 0.9 % (0.0-2.0); EOSINOPHILS % (AUTO) 0.1 % (0.0-3.0); HEMOGLOBIN 10.6 G/DL (12.0-16.0); LYMPHOCYTES % (AUTO) 39.8 % (20.0-45.0); MEAN CORPUSCULAR VOLUME 87 FL (80-99); MONOCYTES % (AUTO) 10.2 % (1.0-10.0); PLATELET COUNT 271 K/UL (150-450); RED BLOOD COUNT 3.81 M/UL (4.20-5.40); RED CELL DISTRIBUTION WIDTH 14.4 % (11.6-14.8); WHITE BLOOD COUNT 5.9 K/UL (4.8-10.8)
[2018-12-08 22:23] LABS: APPEARANCE,URINE SLIGHTLY CLOUDY; BILIRUBIN, URINE NEGATIVE (NEGATIVE); COLOR,URINE PALE YELLOW; GLUCOSE, URINE (UA) NEGATIVE (NEGATIVE); KETONES,URINE NEGATIVE (NEGATIVE); LEUKOCYTE ESTERASE ,URINE 3+ (NEGATIVE); NITRITE,URINE NEGATIVE (NEGATIVE); PH,URINE 5 (4.5-8.0); PROTEIN,URINE NEGATIVE (NEGATIVE); UROBILINOGEN,URINE NORMAL MG/DL (0.0-1.0)
[2018-12-08 22:37] LABS: ANION GAP 7 mmol/L (5-15); BLOOD UREA NITROGEN 20 mg/dL (7-18); CALCIUM 9.3 MG/DL (8.5-10.1); CARBON DIOXIDE 30 MMOL/L (21-32); CHLORIDE 104 MMOL/L (98-107); CREATININE 1.2 MG/DL (0.55-1.30); SODIUM 141 MMOL/L (136-145)
[2018-12-08 22:42] LABS: ALANINE AMINOTRANSFERASE 27 U/L (12-78); ALBUMIN 3.7 G/DL (3.4-5.0); ALBUMIN/GLOBULIN RATIO 0.8 (1.0-2.7); ALKALINE PHOSPHATASE 97 U/L (46-116); ASPARTATE AMINO TRANSFERASE 20 U/L (15-37); BILIRUBIN,TOTAL 0.2 MG/DL (0.2-1.0)
--- NOTE | 2018-12-08 23:17 | Emergency Room Report ---
History of Present Illness General Chief Complaint: Pain Source: Patient Present Illness HPI She presents with of 4-5 days of left thigh pain it's outer thigh. She has knee pain is chronic. She's been walking differently. There is no increased work out. She denies any fevers or chills. The pain is rated 7/10, aching and radiating somewhat into the hip area. Is mostly in the lateral thigh. Has not taken any medication for this. She denies any recent trauma. There is no numbness. Cut her right little finger with a wire brush earlier today and this is been bleeding. Her tetanus is greater than 10 years. Patient has chronic back pain denies increase in that. She feels this pain is not related to her back pain. Patient also has a history of seizures and last seizure was 40 years ago. No chest pain, palpitations, nausea, vomiting, diarrhea, dysuria, abdominal pain , shortness of breath, depression, visual changes, headache. Allergies: Coded Allergies: CODEINE (Unverified Allergy, Intermediate, 12/08/18) NAUSEA Patient History Past Medical History: see triage record Social History: Denies: smoking Social History Narrative from home Reviewed Nursing Documentation: PMH: Agreed; PSxH: Agreed Nursing Documentation-PMH Past Medical History: No History, Except For Hx Cardiac Problems: No Hx Hypertension: Yes Hx Pacemaker: No Hx Asthma: No Hx COPD: No Hx Diabetes: No Hx Cancer: No Hx Gastrointestinal Problems: No Hx Dialysis: No Hx Cerebrovascular Accident: No Hx Seizures: Yes - last sz 40 yrs ago. Review of Systems All Other Systems: negative except mentioned in HPI Physical Exam Vital Signs Date Time Temp Pulse Resp B/P (MAP) Pulse Ox O2 Delivery O2 Flow Rate FiO2 12/08/18 20:35 97.5 65 16 160/74 98 Room Air Sp02 EP Interpretation: reviewed, normal General Appearance: well appearing, no apparent distress, GCS 15 Head: normocephalic, atraumatic Eyes: bilateral eye normal inspection, bilateral eye PERRL ENT: hearing grossly normal, normal voice, moist mucus membranes Neck: full range of motion, supple Respiratory: no respiratory distress, speaking full sentences Musculoskeletal: back normal, normal range of motion, no calf tenderness, other - Tenderness to palpation left lateral thigh. Range of motion of hip is normal. She does have some knee tenderness about the fusion ligaments are stable. Neurologic: alert, oriented x3, normal gait, grossly normal Psychiatric: mood/affect normal Skin: no rash, other - Small avulsion right little finger. Medical Decision Making Diagnostic Impression: Primary Impression: Thigh pain Qualified Codes: M79.652 - Pain in left thigh Additional Impressions: UTI (urinary tract infection) Qualified Codes: N30.00 - Acute cystitis without hematuria Finger avulsion Qualified Codes: S61.209A - Unspecified open wound of unspecified finger without damage to nail, initial encounter ER Course Patient presents with left thigh pain without trauma. Differential includes muscle strain, bony abnormality, referred pain from back or hip amongst others. Patient will be evaluated with urinalysis to exclude UTI. Patient is treated with Toradol and Tylenol. Edition she has a small avulsion where she cut her little finger with a wire brush on her right hand. She will be given a tetanus vaccination and local wound care. X-rays unremarkable. Urinalysis with pyuria. Patient improved with treatment. Given nitrofurantoin. Discussed findings and treatment plan with patient. Patient stable for outpatient observation and treatment. Laboratory Tests Test 12/08/18 21:20 12/08/18 21:57 Urine Color Pale yellow Urine Appearance Slightly cloudy Urine pH 5 (4.5-8.0) Urine Specific [place] 1.015 (1.005-1.035) Urine Protein Negative (NEGATIVE) Urine Glucose (UA) Negative (NEGATIVE) Urine Ketones Negative (NEGATIVE) Urine Blood Negative (NEGATIVE) Urine Nitrite Negative (NEGATIVE) Urine Bilirubin Negative (NEGATIVE) Urine Urobilinogen Normal MG/DL (0.0-1.0) Urine Leukocyte Esterase 3+ (NEGATIVE) H Urine RBC 5-10 /HPF (0 - 2) H Urine WBC 10-15 /HPF (0 - 2) H Urine Squamous Epithelial Cells Few /LPF (NONE/OCC) Urine Bacteria Moderate /HPF (NONE) H White Blood Count 5.9 K/UL (4.8-10.8) Red Blood Count 3.81 M/UL (4.20-5.40) L Hemoglobin 10.6 G/DL (12.0-16.0) L Hematocrit 33.0 % (37.0-47.0) L Mean Corpuscular Volume 87 FL (80-99) Mean Corpuscular Hemoglobin 28.0 PG (27.0-31.0) Mean Corpuscular Hemoglobin Concent 32.3 G/DL (32.0-36.0) Red Cell Distribution Width 14.4 % (11.6-14.8) Platelet Count 271 K/UL (150-450) Mean Platelet Volume 6.5 FL (6.5-10.1) Neutrophils (%) (Auto) 49.0 % (45.0-75.0) Lymphocytes (%) (Auto) 39.8 % (20.0-45.0) Monocytes (%) (Auto) 10.2 % (1.0-10.0) H Eosinophils (%) (Auto) 0.1 % (0.0-3.0) Basophils (%) (Auto) 0.9 % (0.0-2.0) Sodium Level 141 MMOL/L (136-145) Potassium Level 4.0 MMOL/L (3.5-5.1) Chloride Level 104 MMOL/L (98-107) Carbon Dioxide Level 30 MMOL/L (21-32) Anion Gap 7 mmol/L (5-15) Blood Urea Nitrogen 20 mg/dL (7-18) H Creatinine 1.2 MG/DL (0.55-1.30) Estimate Glomerular Filtration Rate 54.9 mL/min (>60) Glucose Level 91 MG/DL (74-106) Calcium Level 9.3 MG/DL (8.5-10.1) Total Bilirubin 0.2 MG/DL (0.2-1.0) Aspartate Amino Transferase (AST) 20 U/L (15-37) Alanine Aminotransferase (ALT) 27 U/L (12-78) Alkaline Phosphatase 97 U/L (46-116) Total Protein 8.1 G/DL (6.4-8.2) Albumin 3.7 G/DL (3.4-5.0) Globulin 4.4 g/dL Albumin/Globulin Ratio 0.8 (1.0-2.7) L Other X-Ray Diagnostic Results Other X-Ray Diagnostic Results : X-Ray ordered: Left femur # of Views/Limited Vs Complete: 4 View Indication: Pain EP Interpretation: Yes Interpretation: no dislocation, no soft tissue swelling, no fractures Impression: No acute disease Electronically Signed by: Electronically signed by Aaron Lerma MD Last Vital Signs Date Time Temp Pulse Resp B/P (MAP) Pulse Ox O2 Delivery O2 Flow Rate FiO2 12/08/18 23:25 97.5 67 16 145/60 100 Room Air 70 Status: improved Disposition: HOME, SELF-CARE Condition: Improved Scripts Ibuprofen* (MOTRIN*) 600 Mg Tablet 600 MG ORAL Q6H PRN for For Pain, #20 TAB Prov: Aaron Lemra MD 12/08/18 Hydrocodone Bit/Acetaminophen 5-325* (NORCO 5-325*) 1 Each Tablet 1 TAB ORAL Q6H PRN for For Pain, #6 TAB 0 Refills Prov: Aaron Lerma MD 12/08/18 Methocarbamol* (ROBAXIN*) 500 Mg Tablet 500 MG PO TID, #10 TAB 0 Refills Prov: Aaron Lerma MD 12/08/18 Nitrofurantoin Monohyd/M-Cryst* (MACROBID 100 MG*) 100 Mg Capsule 100 MG ORAL EVERY 12 HOURS, #14 CAP Prov: Aaron Lerma MD 12/08/18 [facility]errals: [facility] ([facility]P) Aaron Lerma MD Dec 08, 2018 23:17
[2018-12-08] MEDS ORDERED: IBUPROFEN600 MG ORAL (23:20)
[2018-12-08] MEDS ORDERED: NITROFURANTOIN100 M2 ORAL (23:20)
[2018-12-08] MEDS ORDERED: NORCO 5-325 TA1 EACH ORAL (23:20)
[2018-12-08] MEDS ORDERED: ROBAXIN500 MG PO (23:20)
[2018-12-08 23:25] VITALS: BP 145/60
--- NOTE | 2018-12-09 12:00 | Diagnostic Imaging Report ---
Indication: Left thigh pain Comparison: None Findings: 2 views of the left femur were obtained. No acute fractures, malalignment, erosions or periostitis are identified. Bones are osteopenic. Soft tissues are unremarkable. Impression: Negative examination of the femur
== END 2018-12-08 23:32 | disposition home or self-care (01) ==
LOC: EMR 21:21
DX: M79.652 Pain in left thigh (principal); N39.0 Urinary tract infection, site not specified; M25.569 Pain in unspecified knee; G89.29 Other chronic pain; Z88.5 Allergy status to narcotic agent
CPT/HCPCS: 36415; 73552; 80053; 81001; 85025; 87086; 90471; 90715; 96374; 99284; J1885

== ENCOUNTER 2019-01-17 11:12 | Emergency (ER) | payer MEDICARE, OTHER ==
[~2019-01-17] VITALS: Ht 162.6 cm; Wt 80.7 kg
[~2019-01-17 11:12] MED LIST changes: +LISINOPRIL20 MG ORAL; +NORCO 5-325 TA1 EACH ORAL; +ROBAXIN500 MG PO
[2019-01-17 11:18] VITALS: BP 162/65
--- NOTE | 2019-01-17 11:26 | NUR ---
ED Nurse Note: Pt. AAOX4. ambulatory with assistance. Pt. is noted limping. pt. came with left knee pain since october no injury reported
[2019-01-17 12:05] VITALS: BP 154/79
[2019-01-17] MEDS ORDERED: Ketorolac 60mg Inj IM ONE (12:15)
--- NOTE | 2019-01-17 12:27 | Emergency Room Report ---
History of Present Illness General Chief Complaint: Pain Source: Patient Present Illness HPI This patient states that for the past several weeks she has had pain in her left knee intermittently. She states that the symptoms have, and gone. She first noted pain in the knee with some swelling after going out dancing back in October. She states that the symptoms had improved but then tonight half weeks ago returned and she has significant pain with any movement of the knee or with walking. She denies specific trauma or injury. She did see her primary care physician and underwent plain film x-rays that were unremarkable. She denies fever or chills. She denies recent illness. She has no other complaints. Allergies: Coded Allergies: CODEINE (Unverified Allergy, Intermediate, 12/08/18) NAUSEA Patient History Past Medical History: see triage record, HTN Social History: Denies: smoking, alcohol use, drug use Reviewed Nursing Documentation: PMH: Agreed; PSxH: Agreed Nursing Documentation-PMH Past Medical History: No History, Except For Hx Cardiac Problems: No Hx Hypertension: Yes Hx Pacemaker: No Hx Asthma: No Hx COPD: No Hx Diabetes: No Hx Cancer: No Hx Gastrointestinal Problems: No Hx Dialysis: No Hx Cerebrovascular Accident: No Hx Seizures: Yes - last sz 40 yrs ago. Review of Systems All Other Systems: negative except mentioned in HPI Physical Exam Vital Signs Date Time Temp Pulse Resp B/P (MAP) Pulse Ox O2 Delivery O2 Flow Rate FiO2 01/17/19 11:18 97.5 64 18 162/65 99 Room Air Sp02 EP Interpretation: reviewed, normal General Appearance: no apparent distress, alert, GCS 15, non-toxic Head: normocephalic, atraumatic Eyes: bilateral eye normal inspection, bilateral eye PERRL ENT: hearing grossly normal, normal pharynx, no angioedema, normal voice Neck: full range of motion, supple/symm/no masses Respiratory: no respiratory distress, no retraction, no accessory muscle use, speaking full sentences Rectal: deferred Musculoskeletal: back normal, normal range of motion, swelling - +Effusion/ swelling of the L. knee joint. No erythema or warmth. +pain w/ ROM. Neurologic: alert, oriented x3, responsive, motor strength/tone normal, sensory intact, speech normal Psychiatric: judgement/insight normal, memory normal, mood/affect normal, no suicidal/homicidal ideation Skin: normal color, no rash, warm/dry, well hydrated Medical Decision Making Diagnostic Impression: Primary Impression: Effusion of knee joint, left Additional Impression: Knee pain, left ER Course This patient has a joint effusion of the left knee. The joint effusion is mild. There is no erythema or warmth that would make me concerned for septic arthritis. I suspect this patient has osteoarthritis and given the location of the pain in the medial aspect, I suspect there may be a meniscal involvement and degeneration. I do not feel this patient needs any other imaging at this time. I recommended that this patient go to orthopedics for further treatment and evaluation. The knee was [place] wrapped and she was given a cane for comfort. She was given Toradol IM. She was given close return precautions and follow- up instructions. Last Vital Signs Date Time Temp Pulse Resp B/P (MAP) Pulse Ox O2 Delivery O2 Flow Rate FiO2 01/17/19 11:18 97.5 64 18 162/65 (97) 99 Room Air Status: improved Disposition: HOME, SELF-CARE Condition: Improved Referrals: NON PHYSICIAN (PCP) Shanae Dye DO Jan 17, 2019 12:27
[2019-01-17 12:42] VITALS: BP 154/79
--- NOTE | 2019-01-17 12:42 | NUR ---
ER DISCHARGE NOTE: Patient is cleared to be discharged per ERMD, pt is aox4, on room air, with stable vital signs. pt was given dc and prescription instructions, pt was able to verbalize understanding, pt id band removed. pt is able to ambulate with steady gait. pt took all belongings.
== END 2019-01-17 12:42 | disposition home or self-care (01) ==
LOC: EMR 11:43
DX: M25.462 Effusion, left knee (principal); M25.562 Pain in left knee; I10 Essential (primary) hypertension; G40.909 Epilepsy, unspecified, not intractable, without status epilepticus; Z88.6 Allergy status to analgesic agent
CPT/HCPCS: 96372; 99283

== ENCOUNTER 2020-08-05 11:53 | Emergency (ER) | payer MEDICARE, OTHER ==
[~2020-08-05] VITALS: Ht 162.6 cm; Wt 74.8 kg
[2020-08-05 12:16] VITALS: BP 127/80
--- NOTE | 2020-08-05 12:16 | NUR ---
ED Nurse Note: Patient from home and walked in due to difficulty in walking and leg shaking since last night. Patient also presents with abd pain and nausea. Patient is AAO x4, ambulatory with non labored breathing. Skin is warm and dry.
--- NOTE | 2020-08-05 13:22 | NUR ---
ED Nurse Note: Collected blood and urine then sent.
[2020-08-05 14:07] LABS: BASOPHILS % (AUTO) 0.7 % (0.0-2.0); EOSINOPHILS % (AUTO) 0.1 % (0.0-3.0); HEMATOCRIT 35.2 % (37.0-47.0); HEMOGLOBIN 11.6 G/DL (12.0-16.0); MEAN CORPUSCULAR VOLUME 87 FL (80-99); MONOCYTES % (AUTO) 6.4 % (1.0-10.0); NEUTROPHILS % (AUTO) 68.8 % (45.0-75.0); PLATELET COUNT 210 K/UL (150-450); RED BLOOD COUNT 4.02 M/UL (4.20-5.40); RED CELL DISTRIBUTION WIDTH 14.3 % (11.6-14.8); WHITE BLOOD COUNT 3.9 K/UL (4.8-10.8)
[2020-08-05 14:20] LABS: APPEARANCE,URINE CLEAR; BILIRUBIN, URINE NEGATIVE (NEGATIVE); COLOR,URINE PALE YELLOW; GLUCOSE, URINE (UA) NEGATIVE (NEGATIVE); KETONES,URINE NEGATIVE (NEGATIVE); LEUKOCYTE ESTERASE ,URINE 1+ (NEGATIVE); NITRITE,URINE NEGATIVE (NEGATIVE); PH,URINE 6 (4.5-8.0); PROTEIN,URINE NEGATIVE (NEGATIVE); UROBILINOGEN,URINE NORMAL MG/DL (0.0-1.0)
[2020-08-05 14:26] LABS: ANION GAP 8 mmol/L (5-15); BLOOD UREA NITROGEN 11 mg/dL (7-18); CALCIUM 8.5 MG/DL (8.5-10.1); CARBON DIOXIDE 28 MMOL/L (21-32); CHLORIDE 103 MMOL/L (98-107); CREATININE 0.9 MG/DL (0.55-1.30); POTASSIUM 3.8 MMOL/L (3.5-5.1); SODIUM 139 MMOL/L (136-145)
[2020-08-05 14:31] LABS: ALANINE AMINOTRANSFERASE 23 U/L (12-78); ALBUMIN 3.5 G/DL (3.4-5.0); ALBUMIN/GLOBULIN RATIO 0.8 (1.0-2.7); ALKALINE PHOSPHATASE 66 U/L (46-116); ASPARTATE AMINO TRANSFERASE 26 U/L (15-37); BILIRUBIN,TOTAL 0.2 MG/DL (0.2-1.0)
--- NOTE | 2020-08-05 14:41 | NUR ---
ED Nurse Note: Patient reports headache and Robel was notified. Waiting for new orders.
--- NOTE | 2020-08-05 14:50 | NUR ---
ED Nurse Note: Patient taken for head CT in stable condition.
[2020-08-05 15:00] VITALS: BP 134/70
[2020-08-05] MEDS ORDERED: Gadavist 7.5mMol/7.5ml vial IV PRN (15:00)
--- NOTE | 2020-08-05 15:36 | Diagnostic Imaging Report ---
Indications: Headache Technique: Spiral acquisitions obtained through the brain. Angled axial and coronal 5 x 5 mm slices were reconstructed. Total dose length product 1072 mGycm. CTDI vol(s) 53 mGy. Dose reduction achieved using automated exposure control Comparison: 01/23/2016 Findings: Numerous areas of low deep white matter attenuation are demonstrated throughout the peripheral cerebral deep white matter. These are somewhat ill-defined. This is a largely a new finding, although a few very subtle similar areas may been present previously in retrospect. No acute intracranial hemorrhage. No mass effect nor midline shift. Normal size ventricles and extra axial CSF spaces. The calvarium is intact. Visualized orbits and sinuses are unremarkable. The mastoids are clear. Impression: Somewhat unusual pattern of deep white matter low-attenuation in a more peripheral than periventricular distribution. Although findings probably represent chronic white matter ischemic changes in an unusual distribution, other white matter diseases or or demyelinating disease should also be considered. Negative for acute intracranial bleed or mass effect The CT scanner at [facility] is accredited by the [employer] and the scans are performed using protocols designed to limit radiation exposure to as low as reasonably achievable to attain images of sufficient resolution adequate for diagnostic evaluation.
--- NOTE | 2020-08-05 15:57 | Emergency Room Report ---
History of Present Illness General Chief Complaint: General Complaint Source: Patient Present Illness HPI 65 YO female presents to the ED c/o shaky legs, MIMS's, and hot flashes. Pt. reports onset since yesterday. She denies sudden onset of MIMS. She reports transient MIMS with blurry vision that resolved spontaneously on their own in less than 10 minutes. Pt. reports she was sitting on the toilet for over 30 minutes yesterday and her bilateral legs when numb.She reports return of sensation upon movement, and getting up off the toilet but has had residual shakiness in the legs from the knee's down ever since. She denies paresthesias. She denies incontinence or abdominal pain. Patient denies low back pain. Patient reports she had several loose stools today she denies blood or black tarry stools. She denies nausea or vomiting. She denies neck pain/stiffness, fevers or chills. Patient reports waking up last night with a hot flash. She reports similar symptoms after coming off of Dilantin many years ago. Pt. reports she only takes Amlodipine, lisinopril and gabapentin. She has a history of neuropathy and arthritis. She denies trauma or fall. She denies dysuria or hematuria. she does report some urinary frequency. She denies muscle weakness or abnormal speech. She denies CP or palpitations. Pt. report having lots of recent stress as she just buried her " daughters father" this past weekend as he passed from [employer]. Allergies: Coded Allergies: CODEINE (Unverified Allergy, Intermediate, 12/08/18) NAUSEA COVID-19 Screening Contact w/high risk pt: No Experienced COVID-19 symptoms?: No COVID-19 Testing performed MANAGER SUSTAINABILITY: No Patient History Past Medical History: see triage record Past Surgical History: none Pertinent Family History: none Now: No Reviewed Nursing Documentation: PMH: Agreed; PSxH: Agreed Nursing Documentation-PMH Past Medical History: No History, Except For Hx Cardiac Problems: No Hx Hypertension: Yes Hx Pacemaker: No Hx Asthma: No Hx COPD: No Hx Diabetes: No Hx Cancer: No Hx Gastrointestinal Problems: No Hx Dialysis: No Hx Cerebrovascular Accident: No Hx Seizures: Yes - last sz 40 yrs ago. Review of Systems All Other Systems: negative except mentioned in HPI Physical Exam Vital Signs Date Time Temp Pulse Resp B/P (MAP) Pulse Ox O2 Delivery O2 Flow Rate FiO2 08/05/20 12:06 97.5 87 16 132/65 (87) 97 Room Air Sp02 EP Interpretation: reviewed, normal General Appearance: well appearing, no apparent distress, alert, GCS 15, non-t oxic Head: normocephalic, atraumatic Eyes: bilateral eye normal inspection, bilateral eye PERRL, bilateral eye EOMI, bilateral eye other - no photophobia, no nystagmus ENT: hearing grossly normal, normal voice Neck: full range of motion, no meningismus, no bony tend Respiratory: lungs clear, normal breath sounds, no wheezing, speaking full sentences Cardiovascular #1: regular rate, rhythm, no edema Cardiovascular #2: 2+ radial (R), 2+ radial (L) Gastrointestinal: non tender, soft Genitourinary: normal inspection, no CVA tenderness Musculoskeletal: back normal, normal range of motion, non-tender, other - pt. has unsteady gait- tremulous LE's bilaterally. Neurologic: alert, motor strength/tone normal, DTRs symmetric, oriented x3, sensory intact, responsive, speech normal, no pronator, no focal defects, no Babinski, other - no motor weakness. Pt. tremulous in bilateral LE only with standing and ambulation. Negative rhomberg. NO asterix Psychiatric: judgement/insight normal Skin: no rash, normal color Medical Decision Making PA Attestation Dr. Sol is my supervising Physician whom patient management has been discussed with. Diagnostic Impression: Primary Impression: Ligamentous inflammation Additional Impression: Muscle spasms of both lower extremities ER Course 65 YO female presents to the ED c/o shaky legs, MIMS's, and hot flashes. Pt. reports onset since yesterday. She denies sudden onset of MIMS. She reports transient MIMS with blurry vision that resolved spontaneously on their own in less than 10 minutes. Pt. reports she was sitting on the toilet for over 30 minutes yesterday and her bilateral legs when numb.She reports return of sensation upon movement, and getting up off the toilet but has had residual shakiness in the legs from the knee's down ever since. She denies paresthesias. She denies incontinence or abdominal pain. Patient denies low back pain. Patient reports she had several loose stools today she denies blood or black tarry stools. She denies nausea or vomiting. She denies neck pain/stiffness, fevers or chills. Patient reports waking up last night with a hot flash. She reports similar s ymptoms after coming off of Dilantin many years ago. Pt. reports she only takes Amlodipine, lisinopril and gabapentin. She has a history of neuropathy and arthritis. She denies trauma or fall. She denies dysuria or hematuria. she does report some urinary frequency. She denies muscle weakness or abnormal speech. She denies CP or palpitations. Pt. report having lots of recent stress as she just buried her " daughters father" this past weekend as he passed from [employer]. Pt. presents to ED c/o LBP. Ddx considered: UTI, Guillain [place], MS, Epidural abscess, fracture, sprain/strain, meningitis, spinal chord injury, sciatica, cauda equina, Cardiac arrhythmia, abnormal labs, just to name a few. Vital signs reviewed and are WNL during ED visit. Pt. is afebrile with no signs of infection No new symptoms, and denies recent trauma. No saddle anesthesia noted, Pt. denies incontinence Neurovascular is intact NO muscle weakness - No spinous process ttp. No back pain/tenderness. - pt. has unsteady gait/legs have involuntary shaking only with weight bearing/standing up. - hands without tremor. ORDERS: -CBC: WNL -CMP: WNL -Troponin: WNL -EKG: NSR 72bpm - UA: WNL -CT Head No Contrast and MRI L-Spine w. contrast-- No emergent findings. INTERVENTIONS: - Tylenol 650 mg PO - Toradol 15mg IV After above interventions. Patient was reevaluated and ambulated. Patient was noted to have normal steady gait without tremulousness. --I do not identify an emergent condition at this time. With current presentation, pt. is stable for close outpatient follow up and conservative treatment. D/w pt. to return promptly to ED with worsening or new symptoms.- Pt. verbalizes' understanding and agreement with proposed treatment plan. DISCHARGE: At this time pt. is stable for d/c to home. Will provide printed patient care instructions, and any necessary prescriptions. Care plan and follow up instructions have been discussed with the patient prior to discharge. Labs Test 08/05/20 13:20 White Blood Count 3.9 K/UL (4.8-10.8) Red Blood Count 4.02 M/UL (4.20-5.40) Hemoglobin 11.6 G/DL (12.0-16.0) Hematocrit 35.2 % (37.0-47.0) Mean Corpuscular Volume 87 FL (80-99) Mean Corpuscular Hemoglobin 28.7 PG (27.0-31.0) Mean Corpuscular Hemoglobin Concent 32.8 G/DL (32.0-36.0) Red Cell Distribution Width 14.3 % (11.6-14.8) Platelet Count 210 K/UL (150-450) Mean Platelet Volume 7.7 FL (6.5-10.1) Neutrophils (%) (Auto) 68.8 % (45.0-75.0) Lymphocytes (%) (Auto) 24.0 % (20.0-45.0) Monocytes (%) (Auto) 6.4 % (1.0-10.0) Eosinophils (%) (Auto) 0.1 % (0.0-3.0) Basophils (%) (Auto) 0.7 % (0.0-2.0) Urine Color Pale yellow Urine Appearance Clear Urine pH 6 (4.5-8.0) Urine Specific Gordon 1.005 (1.005-1.035) Urine Protein Negative (NEGATIVE) Urine Glucose (UA) Negative (NEGATIVE) Urine Ketones Negative (NEGATIVE) Urine Blood Negative (NEGATIVE) Urine Nitrite Negative (NEGATIVE) Urine Bilirubin Negative (NEGATIVE) Urine Urobilinogen Normal MG/DL (0.0-1.0) Urine Leukocyte Esterase 1+ (NEGATIVE) Urine RBC 0-2 /HPF (0 - 2) Urine WBC 0-2 /HPF (0 - 2) Urine Squamous Epithelial Cells Occasional /LPF Urine Bacteria Occasional /HPF (NONE) Sodium Level 139 MMOL/L (136-145) Potassium Level 3.8 MMOL/L (3.5-5.1) Chloride Level 103 MMOL/L (98-107) Carbon Dioxide Level 28 MMOL/L (21-32) Anion Gap 8 mmol/L (5-15) Blood Urea Nitrogen 11 mg/dL (7-18) Creatinine 0.9 MG/DL (0.55-1.30) Estimat Glomerular Filtration Rate > 60 mL/min (>60) Glucose Level 99 MG/DL (74-106) Calcium Level 8.5 MG/DL (8.5-10.1) Total Bilirubin 0.2 MG/DL (0.2-1.0) Aspartate Amino Transf (AST/SGOT) 26 U/L (15-37) Alanine Aminotransferase (ALT/SGPT) 23 U/L (12-78) Alkaline Phosphatase 66 U/L (46-116) Troponin I 0.012 ng/mL (0.000-0.056) Total Protein 8.0 G/DL (6.4-8.2) Albumin 3.5 G/DL (3.4-5.0) Globulin 4.5 g/dL Albumin/Globulin Ratio 0.8 (1.0-2.7) EKG Diagnostic Results Troponin ordered: Yes When was troponin ordered?: Aug 05, 2020 EKG Time: 13:08 Rate: normal - 72 bpm Rhythm: NSR ST Segments: no acute changes ASA given to the pt in ED: No PA Scribe Text This Interpretation was scribed by BLAIR Hays. CT/MRI/US Diagnostic Results CT/MRI/US Diagnostic Results #1: Imaging Test Ordered: CT head No- Contrast Impression " Impression: Somewhat unusual pattern of deep white matter low-attenuation in a more peripheral than periventricular distribution. Although findings probably represent chronic white matter ischemic changes in an unusual distribution, other white matter diseases or or demyelinating disease should also be considered. Negative for acute intracranial bleed or mass effect ." --Per official radiology report- Please see report for specific details. CT/MRI/US Diagnostic Results #2: Imaging Test Ordered: MRI L-SPine w. Contrast Impression " Impression: Thickened left L3-4 ligamentum flavum. Unusual contrast enhancement of this, may indicate inflammation or infection. No definite findings to suggest epidural abscess. Degenerative changes as detailed on a level by level basis above ." --Per official radiology report- Please see report for specific details. Last Vital Signs Date Time Temp Pulse Resp B/P (MAP) Pulse Ox O2 Delivery O2 Flow Rate FiO2 08/05/20 12:16 97.9 76 20 127/80 98 Room Air Status: improved Disposition: HOME, SELF-CARE Condition: Stable Scripts Famotidine* (Pepcid 20mg tablet*) 20 Mg Tablet 20 MG ORAL TWICE A DAY for Gerd for 7 Days, #14 TAB 0 Refills Prov: Belen Hays 08/05/20 Naproxen* (NAPROXEN*) 500 Mg Tablet 500 MG ORAL TWICE A DAY for 7 Days, #14 TAB Prov: Belen Hays 08/05/20 Referrals: NOT CHOSEN IPA/,REFERRING (PCP) [facility] Departure Forms: Return to Work Return to Work Date: Aug 09, 2020 Other Restrictions: May return Sooner if Symptoms have resolved. Return to Full Activity: Aug 12, 2020 Work Restrictions: No Heavy Lifting, No Prolonged Standing Patient Instructions: Muscle Cramps and Spasms, [id number] Additional Instructions: Take medications as directed. Follow up with an Primary Care provider and or category specialist in 3-5 days, even if your symptoms have resolved. If symptoms persist MRI may be required at the discretion of your PCP or Specialist. --Please review list of primary care clinics, if you do not already have a primary care provider who can give you an Orthopedic Referral. Return sooner to ED if new symptoms occur, or current symptoms become worse. - Please note that this Emergency Department Report was dictated using [employer] technician technology software, occasionally this can lead to erroneous entry secondary to interpretation by the dictation equipment. Belen Hays Aug 05, 2020 15:57
--- NOTE | 2020-08-05 16:00 | NUR ---
ED Nurse Note: patient came back from CT/MRI and stable.
--- NOTE | 2020-08-05 16:44 | Diagnostic Imaging Report ---
Indication: Low back pain Technique: SAGITTAL T1, SAGITTAL T2 PROPELLER, SAGITTAL STIR PROPELLER, AXIAL T1 FLAIR PROPELLER, SAGITTAL AND AXIAL PRE AND POSTCONTRAST T1 FAT-SATURATED IMAGES OF THE LUMBAR SPINE Comparison: none Findings: At L3-4, there is thickening of the ligamentum flavum on the left, possibly with a slight degree of central edema. On the postcontrast images, this demonstrates contrast enhancement of the thickened left ligamentum flavum. There is also a small focus of contrast enhancement just peripheral to the facet joint on the left. There is very questionably a tiny focus of fluid in this area on the T2-weighted images. The thickened ligamentum flavum along with very mild circumferential annular bulge results in very mild spinal canal stenosis at this level. The vertebral body heights are preserved. The disc spaces are preserved. The vertebral marrow signal is normal. The conus medullaris terminates at the mid L2 level. At L4-5, there is mild circumferential annular bulge which does not significantly narrow the spinal canal. There is mild narrowing of the bilateral neural foramina by the bulging disc. At L5-S1, there is posterior disc protrusion with a high intensity zone. This does not significant compromise the spinal canal, does result in mild compromise of the bilateral neural foramina. No other unusual contrast enhancement is demonstrated. Impression: Thickened left L3-4 ligamentum flavum. Unusual contrast enhancement of this, may indicate inflammation or infection. No definite findings to suggest epidural abscess. Degenerative changes as detailed on a level by level basis above
[2020-08-05] MEDS ORDERED: Ketorolac 30mg Inj IV ONE (17:00)
[2020-08-05] MEDS ORDERED: FAMOTIDINE20 MG ORAL (17:38)
[2020-08-05] MEDS ORDERED: NAPROXEN500 M2 ORAL (17:38)
[2020-08-05 17:47] VITALS: BP 128/87
--- NOTE | 2020-08-05 17:47 | NUR ---
ER DISCHARGE NOTE: Patient is cleared to be discharged per PA, pt is aox4, on room air, with stable vital signs. pt was given dc and prescription instructions, pt was able to verbalize understanding, pt id band and iv site removed without complications. pt is able to ambulate with steady gait. pt took all belongings.
== END 2020-08-05 17:47 | disposition home or self-care (01) ==
LOC: EMR 12:40
DX: M24.29 Disorder of ligament, other specified site (principal); I10 Essential (primary) hypertension; M62.838 Other muscle spasm; Z88.6 Allergy status to analgesic agent; R51.9 Headache, unspecified; G40.909 Epilepsy, unspecified, not intractable, without status epilepticus; M19.90 Unspecified osteoarthritis, unspecified site; G62.9 Polyneuropathy, unspecified
CPT/HCPCS: 36415; 70450; 72149; 80053; 81003; 84484; 85025; 93005; 96374; 99284; A9585; J1885